=== PATIENT | female | born 1980 | race Caucasian/White ===

== ENCOUNTER → 2023-10-10 08:48 | Outpatient (REF) | payer BC, SELFPAY | LOC: HWWDC 08:48 | PROVIDERS: ATTENDING PHYSICIAN Nurse Practitioner | DX: Z12.31 Encounter for screening mammogram for malignant neoplasm of breast (principal) | CPT/HCPCS: 77063; 77067 ==

== ENCOUNTER → 2024-09-19 10:11 | Outpatient (REF) | payer BC, SELFPAY | LOC: HWRAD 10:11 | PROVIDERS: ATTENDING PHYSICIAN Obstetrics & Gynecology | DX: R33.9 Retention of urine, unspecified (principal); D25.9 Leiomyoma of uterus, unspecified | CPT/HCPCS: 76830; 76856 ==

== ENCOUNTER 2025-02-13 05:47 | Day surgery (SDC) | payer BC, SELFPAY ==
[2025-01-28 08:53] LABS: % Eosinophils 4.8 % (0-6); % Immature Granulocytes 0.2 % (0-0.5); % Lymphocytes 31.9 % (20.5-51.1); % Monocytes 5.6 % (1.7-9.3); % Neutrophils 56.5 % (42.2-75.2); Absolute Basophils 0.1 10^3/uL (0-0.2); Absolute Eosinophils 0.4 10^3/uL (0-0.7); Absolute Lymphocytes 2.9 10^3/uL (1.2-3.4); Absolute Monocytes 0.5 10^3/uL (0.1-0.6); Absolute Neutrophils 5.1 10^3/uL (1.4-6.5); Hematocrit 39.8 % (37.0-47.0); Hemoglobin 13.4 g/dL (12.0-16.0); Mean Corp Hgb Conc. 33.7 g/dL (33.0-37.0); Mean Corpuscular Hgb 28.3 pg (27.0-31.0); Mean Corpuscular Volume 84.1 fL (81.0-99.0); Mean Platelet Volume 9.2 fL (7.4-10.4); Nucleated Red Blood Cells % 0 %; Platelet Count 358 10^3/uL (130-400); Red Blood Cell Count 4.73 10^6/uL (4.20-5.40); Red Cell Dist. Width 12.6 % (11.5-14.5)
[2025-01-28 09:27] LABS: Blood Urea Nitrogen 6 mg/dl (7-17); Calcium 9.3 mg/dl (8.4-10.2); Carbon Dioxide 23 mmol/L (22-30); Chloride 109 mmol/L (98-107); Glucose 85 mg/dl (70-99); Potassium 4.1 mmol/L (3.5-5.1); Sodium 140 mmol/L (135-145); eGFR > 60.00
[2025-01-28 13:53] VITALS: BMI 21.9
[2025-01-28 14:19] LABS: Beta HCG Quantitative < 2.39 mIU/ml
[2025-02-13] VITALS (12 sets, daily range): BP systolic 99–146; BP diastolic 69–92; BMI 21.9
[2025-02-13] MEDS: NEURONTIN 300 MG PO (06:32)
[2025-02-13] MEDS: TYLENOL 1000 MG PO (06:32)
[2025-02-13 06:49] LABS: Glucose - Point of Care 94 mg/dl (70-99)
[2025-02-13] MEDS: NORMOSOL-R/PLASMALYTE-A 1000 IV (06:52)
--- NOTE | 2025-02-13 09:37 | W.IMMPOSTOP ---
Addendum entered and electronically signed by Pepper Schmid DO 02/13/25 18:05:
correction : Assist: Claritza Seo PA-C
Original Note:
Surgical Immed Post Op Note
-
Primary Surgeon: Pepper Schmid DO
[place] Liner: MELANIA Palmer
Pre-op Diagnosis: Menorrhagia
Post-op Diagnosis: Menorrhagia, suspicious lesion noted left ovarian surface
Procedure Performed: Robotic assisted total laparoscopic hysterectomy, bilateral salpingectomy, biopsy of left ovary, left oopherectomy, pelvic washings.
Anesthesia Type: general ET Dr. Aguilar
Specimen / Cultures: uterus, cervix, bilateral fallopian tubes, left ovarian biopsy, left oopherectomy, pelvic washings.
Estimated Blood Loss: 10ml
Complications: none
Operative Findings: Uterus globular shaped suspicious for adenomyosis. Normal appearing tubes and right ovary. Left ovary has an approx 1cm superficial papillary lesion that is suspicious. This was excised below base with cautery and sent for
frozen section. Omentum, liver, bowel appears normal.
Frozen section: borderline serous tumor.
Pt stable to recovery.
[2025-02-13 10:04] LABS: Glucose - Point of Care 186 mg/dl (70-99)
[2025-02-13] MEDS: ZOFRAN 4 MG IV (10:05)
[2025-02-13] MEDS: DILAUDID 0.25 MG IV ×2 (10:08→10:32)
[2025-02-13] MEDS: ROXICODONE 5 MG PO (14:02)
== END 2025-02-13 14:36 | disposition home or self-care (01) ==
LOC: SDS 05:47
PROVIDERS: ATTENDING PHYSICIAN Obstetrics & Gynecology
DX: D27.1 Benign neoplasm of left ovary (principal); N80.03 Adenomyosis of the uterus; N92.0 Excessive and frequent menstruation with regular cycle; N85.2 Hypertrophy of uterus; N83.9 Noninflammatory disorder of ovary, fallopian tube and broad ligament, unspecified
CPT/HCPCS: 58571; 88305; 88307; 88332; 80048; 82962; 84702; 85025; 86850; 86900; 86901; 88112; 88331; 88341; 88342

== ENCOUNTER 2025-08-03 10:26 | Emergency (ER) | payer BC, SELFPAY ==
[2025-08-03 10:45] VITALS: BP 160/73
[2025-08-03 11:05] VITALS: BMI 21.3
[2025-08-03 11:22] LABS: Hematocrit 40.1 % (37.0-47.0); Hemoglobin 13.5 g/dL (12.0-16.0); Mean Corp Hgb Conc. 33.7 g/dL (33.0-37.0); Mean Corpuscular Volume 85.3 fL (81.0-99.0); Nucleated Red Blood Cells % 0 %; Platelet Count 372 10^3/uL (130-400); Red Cell Dist. Width 13.6 % (11.5-14.5)
[2025-08-03 11:25] LABS: Urine Character Slightly Cloudy (Clear)
--- NOTE | 2025-08-03 11:27 | ED.GENMED ---
History of Present Illness
General
Chief Complaint: Urinary Symptoms
Time Seen by Provider: 08/03/25 10:59
History of Present Illness
History of Present Illness:
Claritza is a 45-year-old female with past medical history of kidney stones and appendicitis presents for any drainage. Similar to prior episodes of kidney stones. Reports difficulty urinating and nausea. Not eaten yet this morning. Pain severity
presented to the ER. She is s/p appendectomy and hysterectomy and L oopherectomy.
Past History
Past History
ED Past Medical History: NIDDM, Hypothyroidism, Psychiatric (anxiety disorder) and Other (Migraine headaches, irritable bowel syndrome, kidney stones, hearing impairment)
ED Past Surgical History: Appendectomy
Social History
Tobacco: Non-smoker
Alcohol: Occasional
Drug: None
Personal:
Living: with family
Employment: Employed
Family History
Family History: Early CAD
Phy Exam
General Physical Exam
General Presentation: well appearing and no apparent distress
General Skin: warm and dry
General Habitus: normal
General Mental: alert
General Hydration: appears well hydrated
ENT Exam
ENT Exam: EOMI, pharynx normal, neck supple and normocephalic
Eye Exam
Eye Exam: PERRL, cornea clear and conjunctiva normal
Cardiovascular Exam
Cardiovascular Exam: regular rate/rhythm, no edema, no murmur and normal peripheral pulses
Pulmonary Exam
Pulmonary Exam: lungs clear, no respiratory distress, no rales, no crackles, no rhonchi, no stridor, no wheezing and no cough
Gastrointestinal Exam
Gastrointestinal Exam: normal bowel sounds, soft, no organomegaly, no pulsatile mass, non distended, tender and other (right flank tenderness)
Neurological Exam
Neurological Exam: alert, oriented x3, no motor deficits and speech normal
Musculoskeletal Exam
Musculoskeletal Exam: full ROM and no edema
Skin Exam
Skin Exam: normal color, warm/dry, no rash and no petechia
Psychiatric Exam
Psychiatric Exam: normal mood/affect
Course
Orders/Labs/Results
Orders:
Orders
08/03/25 11:11
Complete Blood Count/With Diff Urgent
Comprehensive Metabolic Panel Urgent
Urinalysis Reflex To Culture Urgent
Date Specimen was Collected: 08/03/25
Time Specimen was Collected: 11:10
Urine Microscopic Reflex Cult Urgent
Urine Culture Urgent
YVETTE Source: U
Specimen Description:
Date Specimen was Collected: 08/03/25
Time Specimen was Collected: 11:10
08/03/25 11:15
CT Abd/pelvis Wo Iv Cont Urgent
Comment:
Reason For Exam: right flank pain
Ketorolac [Toradol] 15 mg IV NOW STA
Ondansetron Injectable [Zofran] 4 mg IV NOW STA
Abnormal Lab Results
08/03/25
11:11
WBC 11.2 H 10^3/uL
(4.8-10.8)
Absolute Neuts (auto) 7.0 H 10^3/uL
(1.4-6.5)
Absolute Monos (auto) 0.8 H 10^3/uL
(0.1-0.6)
Creatinine 0.5 L mg/dL
(0.6-1.0)
Glucose 137 H mg/dl
(70-99)
Urine Ketones 1+ A
(Negative)
Ur Occult Blood Reflex 4+ A
(Negative)
Leukocyte Esterase Rfl 1+ A
(Negative)
Urine RBC >100 A /HPF
(0-2)
Urine Bacteria (Reflex) Moderate A
(Negative)
Urine Albumin (Reflex) 2+ A
(Neg - Trace)
08/03/25 11:11
08/03/25 11:11
Vital Signs
Initial and Last Documented VS:
Initial Vital Signs
Temp Pulse Resp BP Pulse Ox
36.5 C 57 18 160/73 98
08/03/25 10:45 08/03/25 10:45 08/03/25 10:45 08/03/25 10:45 08/03/25 10:45
Last Documented Vital Signs
Temp Pulse Resp BP Pulse Ox
36.5 C 77 16 106/70 99
08/03/25 10:45 08/03/25 13:20 08/03/25 13:20 08/03/25 13:20 08/03/25 13:20
MDM/Problems Addressed
Differential Diagnosis Includes:
CBC and BMP unremarkable. UA with blood but negative for infection. CT scan without IV contrast obtained and shows no obstructing right renal stones. Scan shows left intrarenal stone and incidental right adnexal cyst.
Patient was given Toradol and Zofran with improvement of pain. She was able to urinate and states after this her pain was markedly improved. It is likely that patient passed stone prior to CT scan being completed as her pain is now nonexistent.
Discussed incidental finding with her and she will follow-up outpatient with her child welfare social worker as she may benefit from a ultrasound to better classify the cyst. Return precautions discussed and patient is medically stable for discharge
*Pulse Oximetry
SaO2: 98
Oxygen Mode of Delivery: Room air
Patient hypoxic: no
*Critical Care Note
Total Time (30-74mins, 75-104mins- exclusive of procedures): Not Applicable
ED Attending Note
-
Portions of this chart may have been created with voice recognition software.� Occasional wrong word or��sound alike� substitutions may have occurred due to the inherent limitations of voice recognition software.
Discharge Plan
Departure
Patient Disposition: Home (Routine Discharge)
Date of Disposition: 08/03/25
Time of Disposition: 14:06
Patient with high blood pressure during this ER visit?: No
Discharge Problem:
Kidney calculi, Acute flank pain
Instructions: Kidney stones in adults - ED (DC)
Prescriptions:
No Action
prednisone 20 mg Tablet
20 mg PO DAILY
erythromycin 250 mg Tablet
250 mg PO DAILY
lisdexamfetamine [Vyvanse] 30 mg Capsule
30 mg PO DAILY
Mounjaro 10 mg/0.5 mL Pen Injector
10 mg SC FR
oxycodone 5 mg tablet
5 mg PO Q6H PRN (Reason: Pain) Qty: 14 0RF
Referrals:
Bill Cornejo CRNP [Family Provider]
Activity Restrictions/Additional Instructions:
No kidney stones visualized on CAT scan. They are today. However it is possible that he passed the stone when you urinated in the ER since your pain has resolved since then. Incidentally on your CAT scan a right adnexal cyst like structure was
seen. Please follow-up with your SERICULTURE TEACHER regarding this finding. CT report states '3.6 cm cystic lesion within the right adnexa, without pelvic free fluid, likely benign. Consider nonemergent pelvic ultrasound for further characterization. No right
adnexal abnormality was seen on prior pelvic ultrasound dated 09/19/2024.'
Return to the ER for any worsening pain, fevers, chills, improved with [id number] medications like Tylenol or Motrin.
Interventions
Interventions:
*Risk Screen - Suicide Last Done: 08/03/25 11:07
*General Assessment Last Done: 08/03/25 11:05
*Neglect/Abuse Screening Last Done: 08/03/25 11:07
*ED COVID-19 Vaccine History Last Done: 08/03/25 11:05
*ED Influenza Vaccine History Last Done: 08/03/25 11:05
[facility] Fall Risk Assessment Tool Last Done: 08/03/25 11:05
*Nursing Disposition Last Done: 08/03/25 14:45
ED-Female Genitourinary Assessment Last Done: 08/03/25 11:07
Discharge Date and Time
Discharge Date/Time: 08/03/25 14:46
Print Language: GREENLANDIC
[2025-08-03] MEDS: TORADOL 15 MG IV (11:28)
[2025-08-03] MEDS: ZOFRAN 4 MG IV (11:29)
[2025-08-03 11:35] VITALS: BP 114/72
[2025-08-03 11:35] LABS: ALT (SGPT) 13 U/L (0-35); AST (SGOT) 17 U/L (14-36); Albumin 4.6 g/dl (3.5-5.0); Alkaline Phosphatase 58 U/L (38-126); Blood Urea Nitrogen 9 mg/dl (7-17); Calcium 9.3 mg/dl (8.4-10.2); Carbon Dioxide 27 mmol/L (22-30); Chloride 105 mmol/L (98-107); Estimated Creatinine Clearance 120 ml/min; Glucose 137 mg/dl (70-99); Potassium 3.7 mmol/L (3.5-5.1); Sodium 138 mmol/L (135-145); Total Protein 6.9 g/dl (6.3-8.2); eGFR > 60.00
[2025-08-03 11:58] LABS: Urine Squamous Cell >30 /LPF (Few)
[2025-08-03 11:59] LABS: Urine Red Blood Cell >100 /HPF (0-2)
[2025-08-03 13:20] VITALS: BP 106/70
--- NOTE | 2025-08-03 14:02 | EDRN ---
Mindy PA in to pt at this time.
== END 2025-08-03 14:46 | disposition home or self-care (01) ==
LOC: EMR 10:26
PROVIDERS: Surgery Trauma Surgery; EMERGENCY PHYSICIAN Student in an Organized Health Care Education/Training Program
DX: N20.0 Calculus of kidney (principal); N83.291 Other ovarian cyst, right side; E11.9 Type 2 diabetes mellitus without complications; E03.9 Hypothyroidism, unspecified; K58.9 Irritable bowel syndrome, unspecified; H91.90 Unspecified hearing loss, unspecified ear; Z87.442 Personal history of urinary calculi
CPT/HCPCS: 99284; 96374; 96375; 74176; 80053; 81003; 81015; 85025; 87086